=== PATIENT | male | born 1955 | race African-American/Black ===

== ENCOUNTER 2023-11-12 15:52 | Emergency (ER) | payer MEDICARE, MEDICAID ==
[~2023-11-12] VITALS: Ht 177.8 cm; Wt 87.0 kg
[2023-11-12 16:01] VITALS: O2SAT 99
[2023-11-12] MEDS ORDERED: ACETAMINOPHEN 325MG TABLET PO STA (16:01)
[2023-11-12] MEDS ORDERED: ONDANSETRON HCL 4MG/2ML INJ IV STA (16:01)
[2023-11-12] MEDS ORDERED: SODIUM CHLORIDE 0.9% 1,000 ML IV ONE (16:15)
[2023-11-12 16:55] LABS: BASOPHILS % 0.4 % (0.0-2.0); EOSINOPHILS % 0.1 % (0.0-5.0); HEMATOCRIT. 44.5 % (42.0-52.0); LYMPHOCYTES % 14.8 % (20.0-50.0); MEAN CORPUSCULAR HEMOGLOBIN 28.7 pg (28.0-32.0); MEAN CORPUSCULAR HGB CONC 33.7 g/dL (31.0-37.0); MEAN CORPUSCULAR VOLUME 85.2 fL (80.0-94.0); MEAN PLATELET VOLUME 9.7 fl (7.4-10.4); MONOCYTES % 5.9 % (2.0-8.0); NEUTROPHILS % 78.8 % (40.0-76.0); PLATELET 95 x1000/uL (130-400); RED BLOOD CELL COUNT 5.23 mill/uL (4.7-6.1); RED CELL DISTRIBUTION WIDTH 13.9 % (11.6-14.6); WHITE BLOOD COUNT 11.2 x1000/uL (4.5-11.0)
[2023-11-12 17:09] LABS: ALANINE AMINOTRANSFERASE 29 IU/L (10-49); ALBUMIN 4.9 g/dL (3.2-4.8); ASPARTATE AMINOTRANSFERASE 66 IU/L (<34); BILIRUBIN TOTAL 2.1 mg/dL (0.1-1.0); CALCIUM 9.5 mg/dL (8.7-10.4); CARBON DIOXIDE 21 mEq/L (21-32); CHLORIDE 102 mEq/L (98-107); CREATININE 1.7 mg/dL (0.6-1.3); GLUCOSE 180 mg/dL (70-105); PROTEIN TOTAL 9.2 g/dL (6.0-8.3); SODIUM 134 mEq/L (136-145); UREA NITROGEN BLOOD 17 mg/dL (9-23)
[2023-11-12 17:22] LABS: POTASSIUM 7.4 mEq/L (3.5-5.1)
[2023-11-12 18:00] VITALS: BP 144/89; TEMP 100.8
[2023-11-12 18:15] LABS: ALANINE AMINOTRANSFERASE 18 IU/L (10-49); ALBUMIN 4.6 g/dL (3.2-4.8); ASPARTATE AMINOTRANSFERASE 15 IU/L (<34); BILIRUBIN TOTAL 2.1 mg/dL (0.1-1.0); CALCIUM 9.3 mg/dL (8.7-10.4); CARBON DIOXIDE 21 mEq/L (21-32); CHLORIDE 104 mEq/L (98-107); CREATININE 1.6 mg/dL (0.6-1.3); GLUCOSE 172 mg/dL (70-105); POTASSIUM 4.4 mEq/L (3.5-5.1); PROTEIN TOTAL 7.7 g/dL (6.0-8.3); SODIUM 139 mEq/L (136-145); UREA NITROGEN BLOOD 18 mg/dL (9-23)
[2023-11-12 19:39] VITALS: PULSE 82; RESP 16
[2023-11-12] MEDS ORDERED: ONDA4TAB11 PO (19:41)
== END 2023-11-13 08:59 | disposition home or self-care (01) ==
LOC: EDBD 15:52 → ER 15:52
DX: R11.2 Nausea with vomiting, unspecified (principal); R79.89 Other specified abnormal findings of blood chemistry; E80.7 Disorder of bilirubin metabolism, unspecified; E11.9 Type 2 diabetes mellitus without complications; I10 Essential (primary) hypertension; Z86.73 Personal history of transient ischemic attack (TIA), and cerebral infarction without residual deficits
CPT/HCPCS: 99283; 96374; 96361; 83690; 85025; 36415; 80053; J2405; J7030